=== PATIENT | female | born 2000 | race Caucasian/White ===

== ENCOUNTER 2023-04-26 15:10 | Emergency (ER) | payer MEDICAID ==
[~2023-04-26] VITALS: Ht 167.6 cm; Wt 75.3 kg
[2023-04-26 15:25] VITALS: BP 118/67; PULSE 104; RESP 18; TEMP 102.1; O2SAT 98
[2023-04-26] MEDS ORDERED: IBUPROFEN 600 MG TAB PO ONE (15:35)
[2023-04-26] MEDS ORDERED: ACETAMINOPHEN EXTRA STRENGTH 500 MG TAB PO ONE (15:35)
[2023-04-26] MEDS ORDERED: ONDANSETRON 4 MG ODT PO ONE (15:35)
[2023-04-26] MEDS ORDERED: ACET-9882 PO (16:32)
[2023-04-26] MEDS ORDERED: IBUP-2213 PO (16:32)
[2023-04-26] MEDS ORDERED: ONDA-188 SL (16:32)
[2023-04-26 17:30] VITALS: BP 110/64; PULSE 90; RESP 17; TEMP 100.2; O2SAT 97
== END 2023-04-26 17:30 | disposition home or self-care (01) ==
LOC: MED 15:10
DX: J10.1 Influenza due to other identified influenza virus with other respiratory manifestations (principal); R11.2 Nausea with vomiting, unspecified; Z79.899 Other long term (current) drug therapy
CPT/HCPCS: 81025; 99284; Q0162